=== PATIENT | male | born 1985 | race African-American/Black ===

== ENCOUNTER 2023-09-28 16:58 | Emergency (ER) | payer BC ==
[~2023-09-28] VITALS: Ht 193 cm; Wt 117.9 kg
[2023-09-28] MEDS ORDERED: FLUT16SP16 BNOSTRILS (18:09)
[2023-09-28 18:21] VITALS: BP 143/91; TEMP 98.3; O2SAT 99
== END 2023-09-28 18:23 | disposition home or self-care (01) ==
LOC: ER 17:05
DX: J34.89 Other specified disorders of nose and nasal sinuses (principal); R51.9 Headache, unspecified; E03.9 Hypothyroidism, unspecified